=== PATIENT | female | born 1945 | race Caucasian/White ===

== ENCOUNTER 2018-10-30 22:03 | Inpatient (IN) ==
[2018-10-31] MEDS ORDERED: TYLENOL PO ONE (02:58)
[2018-10-31 03:02] LABS: BASO# 0.03 X1000 (0.0-0.2); BASO% 0.2 % (0.0-0.8); EOS# 0.05 X1000 (0.0-0.7); EOS% 0.4 % (0.0-10.0); HEMATOCRIT 15.1 % (37.0-47.0); HEMOGLOBIN 4.8 g/dL (12.0-16.0); LYMPH# 1.13 X1000 (1.2-3.4); LYMPH% 7.9 % (20.5-51.1); MCH 31.2 PG (27-31); MCHC 31.8 g/dL (33-37); MCV 98.1 FL (81-99); MONO% 4.9 % (1.7-9.3); MPV 9.3 FL (7.4-10.4); NEUT# 12.37 X1000 (1.4-6.5); NEUT% 86.6 % (42.2-75.2); PLT 280 X1000 (130-400); RBC 1.54 XMIL (4.2-5.4); RDW 17.6 % (11.5-14.5); WBC 14.28 X1000 (4.8-10.8)
[2018-10-31 03:10] LABS: ALB/GLOB RATIO 1.6; ALBUMIN 2.9 g/dL (3.5-5.0); CALCIUM 8.5 mg/dL (8.8-10.2); CREATININE 2.6 mg/dL (0.5-0.9); POTASSIUM 4.8 mmol/L (3.5-5.1); TOTAL BILIRUBIN 0.18 mg/dL (0.20-1.00); TOTAL PROTEIN 4.7 g/dL (6.3-8.3)
--- NOTE | 2018-10-31 03:51 | PROVIDER DOCUMENTATION ---
This chart was entered by Kira Buckner Scribe, acting as scribe for Allen Ray MD. HPI-General Adult - General Stated Complaint: ams, weakness Time Seen by Provider: 10/31/18 00:38 Source: patient Allergies/Adverse Reactions: Patient Allergies Allergy/AdvReac Type Severity Reaction Status Date / Time codeine Allergy ITCHING Verified 10/31/18 03:29 Sulfa (Sulfonamide Allergy Unknown Verified 10/31/18 03:29 Antibiotics) - History of Present Illness -Gen Adult Nature of Presenting Problems: 73 yof presents w/family w/cc blood in stools, afib, weak, locx2, low bp, lethargic and confused. pt was seen in [facility] , was given 2 units of blood. pt was d/c and told to follow up with [facility] internal medicine. pt family helped her to bathroom earlier and passed out 2 times b/c blood pressure bottoms out when standing. pt family states pt has colonoscopy scheduled for tomorrow but can't b/c rectal bleeding. pt has hx of anemia, st 4 renal failure, and cancerx2. Review of Systems - Adult - REVIEW OF SYSTEMS - ADULT Constitutional: reports: no symptoms reported, other (weak, lethargic, confused.) Eyes: reports: no symptoms reported Ears, Nose, Mouth & Throat: reports: no symptoms reported Cardiovascular: reports: no symptoms reported Respiratory: reports: no symptoms reported Gastrointestinal: reports: see HPI, rectal bleeding. denies: abdominal pain, hematemesis, constipation Genitourinary: reports: no symptoms reported Musculoskeletal: reports: no symptoms reported Integumentary: reports: no symptoms reported Neurological: reports: see HPI, syncope. denies: dizziness/vertigo, headache/migraines, seizure, slurred speech Psychiatric: reports: no symptoms reported Endocrine: reports: no symptoms reported Hematologic/Lymphatic: reports: no symptoms reported Allergic/Immunologic: reports: no symptoms reported All Other Systems: Reviewed and Negative Past History - Adult - PAST MEDICAL HISTORY-ADULT Review of Records: reports: Old Records Reviewed, Nursing Assessment Review, Medications Reviewed, Social history reviewed & non-contributory. Major Childhood Illnesses: reports: denies history Cardiovascular: reports: denies history Respiratory: reports: denies history Gastrointestinal: reports: denies history Obstetrical/Gynecological: reports: denies history Genitourinary: reports: denies history Musculoskeletal: reports: denies history Neurological: reports: denies history Endocrine/Immune: reports: denies history Other Conditions: reports: denies history - IMMUNIZATION STATUS Childhood Immunizations: See Nurse Assessment Flu Vaccine: See Nurse Assessment - FAMILY HISTORY Family History: reviewed, not pertinent Physical Exam-General - PHYSICAL EXAM-ADULT Initial Vital Signs Reviewed: Yes - CONSTITUTIONAL General Appearance: alert, mild distress, slow to respond. negative: anxious, obtunded, combative - EYES Eyes: PERRL/EOMI - HEAD, EARS, NOSE, MOUTH & THROAT HENMT: normocephalic/atraumatic, moist mucous membranes, normal ENT inspection - NECK Neck: non-tender, full range of motion, supple, normal inspection - RESPIRATORY Respiratory: chest non-tender, lungs clear, normal breath sounds - CARDIOVASCULAR Cardiovascular: normal peripheral pulses, regular rate, rhythm - GASTROINTESTINAL (ABDOMEN) Abdominal Exam: normal bowel sounds, non tender, soft - LYMPHATIC Lymphatic: no adenopathy - MUSCULOSKELETAL Back Exam: normal inspection, no CVA tenderness, no vertebral tenderness Extremity: normal range of motion, non-tender, normal inspection Peripheral Pulses: radial (R): 2+, radial (L): 2+ - SKIN Integumentary: normal color, normal turgor, warm/dry - NEUROLOGIC Neurologic: grossly normal, no motor/sensory deficits. negative: aphasia, EOM palsy, facial droop, focal weakness - PSYCHIATRIC Psych/Mental Status: normal mood/affect, normal thought content, normal thought process, oriented x 3. negative: anxious, disheveled, depressed affect Progress - PLAN OF CARE/RESULTS Progress/Plan/Lab Results: Vital Signs - 8 hr 10/30/18 22:41 Temperature 98.4 F Pulse Rate 71 Respiratory Rate 16 Blood Pressure 100/43 O2 Sat by Pulse Oximetry 100 Orders Category Date Time Status Nursing- Obtain EKG ONCE Care 10/31/18 00:53 Active cxr [CHEST-1 VIEW] [RAD] Stat Exams 10/31/18 00:53 Ordered CBC WITH ELECTRONIC DIFF [HEME] Stat Lab 10/31/18 00:53 Uncollected COMPREHENSIVE METABOLIC PANEL [CHEM] Stat Lab 10/31/18 00:53 Uncollected PRO B-NATRIURETIC PEPTIDE Stat Lab 10/31/18 00:53 Uncollected TROPONIN T Stat Lab 10/31/18 00:53 Uncollected TYPE & SCREEN [BBK] Stat Lab 10/31/18 00:53 Uncollected EKG [EKG] Stat Ther 10/31/18 00:53 Ordered Result Diagrams: 10/31/18 01:00 10/31/18 01:00 - EKG 1 Time of EKG reading by physician:: 01:08 EKG Read and Signed by:: Allen Ray EKG Interpretation (*Must complete 3 of following elements*): Abnormal Rate: 79 Rhythm: Undetermined rhythm QRS: LBB (incomplete), other (prolonged qt) ST Wave: non-specific ST changes (ST & T wave abnormality, consider inferior ischemia, ST & T wave abnormality, consider anterolateral ischemia) Departure - Departure Date of Disposition Decision: 10/31/18 Time of Disposition Decision: 03:50 DIAGNOSIS: GI bleed Qualifiers: GI bleed type/associated pathology: unspecified gastrointestinal hemorrhage type Qualified Code(s): K92.2 - Gastrointestinal hemorrhage, unspecified Disposition: ADMITTED INPATIENT 09 Certified Medical Emergency: Emergent Condition: Fair - Critical Care Note This patient required my direct & personal management of CC.: No Attestation - Physician/ DEVONTE Attestation Patient care was provided by Advanced Practice Provider:: No The physician spent face to face time with patient:: Yes Advanced Practice Provider documentation review:: Supervising physician onsite and consulted in the evaluation and care of this patient. The physician did have a face to face encounter with the patient. This chart was documented by the indicated scribe, (Kira Buckner Scribe) and accurately reflects the services I performed and decisions made by me, Allen Ray MD, as attested by the provider's signature.
[2018-10-31] MEDS ORDERED: TYLENOL PO PRN (05:05)
[2018-10-31] MEDS ORDERED: VITAMIN D PO SCH (05:15)
[2018-10-31] MEDS: HUMALOG SUBQ SCH ×5 (05:15→21:15)
[2018-10-31 05:55] LABS: IRON SATURATION 24 %; TIBC 208 ug/dL; TOTAL IRON 49 ug/dL (49-151); UNBOUND IRON 159 ug/dL (112-346)
[2018-10-31] MEDS ORDERED: NS 500 ML ONE ×2 (05:57→23:43)
[2018-10-31 06:36] LABS: RETIC% 4.24 % (0.8-2.1); RETIC-HE 37.9 PG (28.2-36.6)
[2018-10-31] MEDS ORDERED: PRILOSEC PO SCH (07:00)
--- NOTE | 2018-10-31 07:14 | Diag Imaging Result Doc PS360 ---
EXAM: CHEST-1 VIEW 10/31/2018 HISTORY: syncope TECHNIQUE: AP portable at 0124 COMMENT: There is obscuration of the left heart border. There is a Port-A-Cath on the left. There are sternotomy wires and anterior mediastinal surgical clips. There are no previous studies available for comparison. IMPRESSION: Atelectasis versus pneumonia in the lingula. Electronically signed by Ede Medina 10/31/2018 7:12 AM
--- NOTE | 2018-10-31 07:40 | EKG Report ---
Test Performed on : 10/31/2018 01:08:13 AM Test Reason : syncope Blood Pressure : / mmHG Vent. Rate : 079 BPM Atrial Rate : 083 BPM P-R Int : 000 ms QRS Dur : 114 ms QT Int : 436 ms P-R-T Axes : 000 003 179 degrees QTc Int : 499 ms Undetermined rhythm Incomplete left bundle branch block ST & T wave abnormality, consider inferior ischemia ST & T wave abnormality, consider anterolateral ischemia Prolonged QT Abnormal ECG No previous ECGs available Unconfirmed Result
[2018-10-31] MEDS ORDERED: ASPIRIN EC PO SCH (09:00)
--- NOTE | 2018-10-31 09:09 | HISTORY AND PHYSICAL ---
CHIEF COMPLAINT: Weakness. HISTORY OF PRESENT ILLNESS: Ms. Godfrey is a 73-year-old female who presented to the emergency room with weakness. She had a spell yesterday where she felt very dizzy and fell. She did not state that she had loss of consciousness. She fell on her backside and was sore. She was lethargic but was alert and oriented x3. The patient was seen in [facility] on this previous and was given 2 units of blood. She was going to follow up for an endoscopy but had this spell so came to the emergency room. The patient has a past medical history of coronary artery disease with myocardial infarction, chronic lymphedema, endometrial cancer status post radiation and chemotherapy, chronic anemia, stage 4 chronic kidney disease, diabetes mellitus type 2 that is now insulin dependent. On arrival to the emergency room laboratory data was checked which showed that she had a hemoglobin of 4.8 and hematocrit of 15.1. The patient will be admitted and transfused with further evaluation and treatment. PAST MEDICAL HISTORY: See history of present illness. Hypothyroidism. PREVIOUS SURGICAL HISTORY: CABG and hysterectomy. SOCIAL HISTORY: She lives with her son and . She started smoking when she was 19 years old and has been a pva-vrfy-dbv-day smoker since that time. She continues to smoke to this day. Smoking cessation was gone over with the patient. She denies wanting to quit. She denies alcohol or illicit drugs. FAMILY HISTORY: Mother still living at 92, recently diagnosed with congestive heart failure. Father started having CVAs in his 60s and at roughly 70 years old. ALLERGIES: Codeine, sulfa. HOME MEDICATIONS: Aspirin 81 mg p.o. daily, Lipitor 40 mg p.o. b.i.d., carvedilol 25 mg p.o. b.i.d., vitamin D3 5000 units p.o. as directed, furosemide 40 mg p.o. daily, hydralazine 50 mg p.o. t.i.d., isosorbide 60 mg p.o. daily, levothyroxine 200 mcg p.o. daily, losartan 100 mg p.o. daily, niacin 500 mg p.o. daily, Lantus insulin 35 units subcutaneously daily. Protonix 40 mg p.o. daily. REVIEW OF SYSTEMS: A 14-point review of systems was conducted with the patient. Pertinent positives listed above in the HPI. She denies melena, hematochezia, hematemesis, hematuria. All other systems reviewed and were also found to be negative. PHYSICAL EXAMINATION: VITAL SIGNS: Temperature 97.9, pulse 74, respirations 15, blood pressure 138/48, and oxygen saturation 100% on room air. GENERAL: A pleasant 73-year-old female lying in the ER stretcher. Answers all questions appropriately. She is alert and oriented x3. HEENT: The head is atraumatic an normocephalic. The pupils are equal, round, and reactive to light. Extraocular eye movements are intact. The sclerae are nonicteric. The conjunctivae are pale. The oral mucosa is dry. NECK: Supple. No JVD but mild hepatojugular reflux. Trachea is midline. No cervical lymphadenopathy. CARDIAC: S1, S2 appreciated. No murmurs, gallops, rubs. LUNGS: Clear to auscultation bilaterally. No rhonchi, wheezes, or rales. Symmetric rise and fall with respirations. ABDOMEN: Soft, nondistended, nontender. Bowel sounds present in all four quadrants. Normoactive. No pulsatile masses. No organomegaly. EXTREMITIES: 1 to 2+ pitting edema bilateral lower extremities related to chronic lymphedema. 1+ pedal pulses bilaterally. GENITOURINARY: No bladder distention, patient voids, otherwise deferred. NEUROLOGICAL: Alert and oriented x3. Cranial nerves II through XII grossly intact. DIAGNOSTIC DATA: Chest x-ray shows chronic COPD changes. LABORATORY DATA: WBC 14.28. Hemoglobin 4.8. Hematocrit 15.1. Platelet count 280,000. Sodium is 142. Potassium is 4.8. Chloride 110. BUN 101. Creatinine 2.6. Glucose 191. ASSESSMENT AND PLAN: 1. Symptomatic anemia of chronic disease. We will transfuse 2 units of packed red blood cells at this time. Consult Dr. Yee George. Likely the patient will need two more units of packed red blood cells. Check iron indices. We will also check intact parathyroid hormone. It is possible also that the patient may need a bone marrow biopsy. 2. Chronic kidney disease stage 4. This also contributes to the patient's anemia. She is at her baseline. From what I understand we do not have previous labs on her. We will consult Dr. Colby for further assistance in this area. 3. Hypertension. Continue home medications at this time. The patient has been taking her medications and has been maintaining normal blood pressures, even with her low blood counts. It is probable that she is orthostatic but will need the medications once blood transfusions are complete. 4. Coronary artery disease. Aware. 5. Hyperlipidemia. Continue statin. 6. Diabetes mellitus type 2, now insulin dependent. We will hold the patient's Lantus, q.4 h. fingersticks with sliding scale insulin, diabetic diet. 7. Further recommendations per the patient's clinical course. PRIMARY CARE PHYSICIAN: Dr. Cadena. ONCOLOGIST: Dr. Yee George. Dictated by TRINY Boyce for Prashant Wolfe MD cc: MD Yee Langley MD Harley C. Bailey, CRNP [place]le P. Akinsoto, MD
[2018-10-31] MEDS: NIACIN PO SCH (10:02)
[2018-10-31] MEDS: COZAAR PO SCH (10:02)
[2018-10-31] MEDS: IMDUR PO SCH (10:02)
[2018-10-31] MEDS: LASIX PO SCH (10:02)
[2018-10-31] MEDS: LIPITOR PO SCH ×2 (10:02→21:49)
[2018-10-31] MEDS: SYNTHROID PO SCH (10:03)
[2018-10-31] MEDS: COREG PO SCH ×2 (10:03→21:32)
[2018-10-31] MEDS: APRESOLINE PO SCH ×3 (10:05→17:00)
[2018-10-31 10:15] LABS: HEMOGLOBIN 8.3 g/dL (12.0-16.0)
--- NOTE | 2018-10-31 11:10 | PROGRESS NOTE ---
DATE: 10/31/2018 SUBJECTIVE: This morning, Ms. Godfrey refers to be doing a lot better. She does not feel dizzy anymore . She had 2 units of PRBC transfused. Hemoglobin and hematocrit is up to 8.3. Briefly, Ms. Godfrey got admitted yesterday. She had gone to [facility] about a week ago because her primary care doctor, Dr. Cadena found out that her hemoglobin was low. Over there, they gave her 2 units and she went home. She said even at home, she continues to have some dark maroon-colored GI bleed, but yesterday she became more dizzy, having more tiredness, so he came to the emergency department where she was found to have a hemoglobin level of 4.8. She was admitted and has been transfused 2 PRBCs. OBJECTIVE: Vitals: This morning, her blood pressure is 163/53, pulse 77, respirations 16, temperature 98 degrees. General: Ms. Godfrey is a 73-year-old female. She is in bed. No distress. HEENT: Mucosa is slightly pale, moist, anicteric, acyanotic. Neck: Neck is supple. Chest: Good air entry bilaterally. There are no crepitations, no rhonchi. Patient has an old sternotomy scar on the anterior chest wall. Cardiovascular: Regular rate and rhythm. No murmurs, no rubs, no gallops. GI: Abdomen is soft, minimally tender in the epigastrium. Bowel sounds are present. No hepatosplenomegaly. Extremities: The left side is normal. The right side has a chronic lymphedema which is noted. 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 No focal neurological deficit. LABORATORY DATA: WBC is 14.28, hemoglobin is now 8.3, platelet count of 280,000. Chemistry is also reviewed. BUN is 101 with creatinine of 2.6. The patient refers to be making urine. IMAGING: A chest x-ray did show atelectasis versus pneumonia in the lingula. CURRENT MEDICATIONS: Have all been reviewed. ASSESSMENT: 1. Symptomatic anemia. Presenting hemoglobin is 4.8. Patient is status post 2 PRBC transfusion. Hemoglobin and hematocrit is up. 2. Anemia secondary to gastrointestinal bleed. Gastroenterology has been consulted to evaluate for the source of the bleed. Patient on PPI 3. Renal failure. Etiology and chronicity is unknown. We do not have any baseline studies in our system. We will request his medical chart from his PCP as well as his oncologist. 4. History of endometrial cancer status post treatment. The patient is said to have been cancer- free for the past 6 years. 5. Chronic right lymphedema noted. 6. Mild gap metabolic acidosis likely due to the degree of the renal failure. 7. History of coronary artery disease status post coronary artery bypass graft. PLAN: So in general, I think Ms. Godfrey is fairly stable. She now feels a lot better. Hemoglobin and hematocrit is up to 8.3. We are going to repeat this later on today as well. She does not seem to have ongoing active gastrointestinal bleed. However, we will consult Gastroenterology to evaluate her for the source of the bleed. cc: Dg Deshpande MD MTDD
[2018-10-31] MEDS ORDERED: PROTONIX 80 MG in NS 80 ML IV ONE (12:10)
--- NOTE | 2018-10-31 13:35 | Diag Imaging Result Doc PS360 ---
CT ABDOMEN/PELVIS W/O CONTRAST - 10/31/2018 INDICATION: Severe Anemia; H/o endometrial cancer in the past COMPARISON: None FINDINGS: There is some platelike atelectasis or scarring in the lung bases. No definite infiltrates. Heart size is grossly normal. There are numerous calcified granulomas throughout the spleen. There is severe calcified vascular disease throughout the aorta and all of its branches. The superior mesenteric artery and renal arteries are heavily affected. Otherwise abdominal organs appear normal. No bowel obstruction or inflammation. No mass or adenopathy. The uterus is absent. Urinary bladder and rectum are normal. There is significant body wall edema, worst at the right hip and thigh. There are moderate degenerative changes of the spine. No acute or suspicious bony lesion. IMPRESSION: 1. Significant body wall edema worst at the right hip and thigh. The reason is unclear. The appearance is nonspecific. 2. No suspicious findings or evidence of recurrence. 3. Severe vascular disease. This exam was performed using automated exposure control, adjustment of mA or kV according to patient size, and/or use of iterative reconstruction technique Electronically signed by Hosea Garcia 10/31/2018 1:33 PM
[2018-10-31] MEDS: PROTONIX 80 MG in NS 80 ML IV SCH (13:40)
--- NOTE | 2018-10-31 13:49 | GASTROENTEROLOGY CONSULTATION ---
DATE: 10/31/2018 REFERRING PHYSICIAN: Dr. Deshpande. PRIMARY CARE DOCTOR: Dr. Ashley Quiroz. REASON FOR CONSULTATION: Severe anemia and maroon stools. HISTORY OF PRESENT ILLNESS: Ms. Godfrey is a 73-year-old female who was admitted on 10/31/2018 with severe weakness. On admission, her hemoglobin was noted to be 4.8 g. She was given 2 units of blood transfusion in the ER. The patient was recently seen, on last Sunday, at [facility] for similar symptoms. She was found to be anemic and she was given 2 units of blood transfusion. She was discharged home to follow up as an outpatient with her primary care doctor. She has a history of coronary artery disease, status post coronary artery bypass graft, and a history of endometrial cancer, status post radiation and chemotherapy. The last treatment was more than 6 or 7 years ago. The patient has been noticing some maroon stools since Sunday, off and on. She denies any nausea, vomiting, or vomiting blood. She had her last colonoscopy done in [place] 7 years ago where she was told she had polyps. She has a history of chronic kidney disease stage 4 but she has not been on dialysis yet. She denies any history of use of NSAIDs or any other blood thinners. Gastroenterology was consulted for further management. PAST MEDICAL HISTORY: Chronic lymphedema, coronary artery disease, status post CABG, endometrial cancer, status post chemotherapy and radiation with last dose 7 years ago, chronic anemia, stage 4 chronic kidney disease, type 2 diabetes which is now insulin-dependent, chronic anemia which has worsened now. PAST SURGICAL HISTORY: CABG, hysterectomy, colonoscopy 7 years ago. SOCIAL HISTORY: Lives with her son and her . She started smoking when she was 19 years old. She has been a one pack per day smoker since that time. She continues to smoke to this day. She denies any history of alcohol or illicit drug abuse. FAMILY HISTORY: Mother still living at 92, recently diagnosed with congestive heart failure. Father started having CVAs in his 60s and at age 7070 years old. ALLERGIES: Codeine and sulfa. MEDICATIONS: Medications in the hospital include Tylenol, Lipitor, Coreg, Lasix, hydralazine, Humalog, isosorbide mononitrate, levothyroxine, losartan, niacin, Zofran, Protonix. I just started the patient on Protonix. We discontinued oral Prilosec. DIET: I switched her from a diabetic diet to a clear liquid diet. REVIEW OF SYSTEMS: Denies any fevers, rigors, chills, chest pain, shortness of breath, dyspnea at rest. Does complain of feeling weak and tired, improving since blood transfusion. Denies any nausea, vomiting, vomiting blood. She denies any major abdominal pain. Does complain of maroon stools. She does have a history of arthritis. Denies any history of NSAIDs. She does take aspirin for coronary artery disease. She denies any neurologic complaints. PHYSICAL EXAMINATION: Vital Signs: Temperature of 98.1 degrees, pulse rate of 67, respiratory rate of 17, blood pressure 124/41, saturating 100% on room air. Body weight of 160 pounds,. BMI 27.5 kg/m2. General Appearance: Moderately built, moderately nourished, lying in bed, in no acute distress. HEENT: Pallor. There is no icterus. Pupils equal, reactive to light. Neck: Supple. Abdomen: Soft, nontender, nondistended. No rebound or guarding. Extremities: No cyanosis, clubbing. She has swelling in the right leg with erythema, suggesting cellulitis. Neurologic: She is alert, awake, and oriented x3. LABS: Hemoglobin and hematocrit are 8.3 and 26, white count of 14.28, platelet count of 280,000, MCV of 98.1. Admission hemoglobin and hematocrit were 4.8 and 15.1. Sodium of 142, potassium of 4.2, chloride of 110, bicarb of 79, BUN of 101, creatinine of 2.2, glucose of 191, calcium is 8.5. Iron level percent saturation of 24, ferritin of 876. Total bilirubin is 0.18, AST 12, ALT 17, alkaline phosphatase 74, total protein is 4.7, albumin of 2.9, folate of 4.9, PTH of 111, and ferritin level 876, percent saturation of iron is 24%. Chest x- ray, atelectasis and pneumonia in the lingula. IMPRESSION AND PLAN: 1. Severe symptomatic anemia. 2. Maroon stools. 3. History of use of aspirin every day for coronary artery disease. 4. Chronic smoker since age 19. 5. History of Endometrial cancer treated 7 years ago with Radiation and chemotherapy. RECOMMENDATIONS: 1. We will check serial hematocrits and transfuse as needed to keep hematocrit more than 27%. 2. We will switch her to a Protonix drip. 3. We will hold her aspirin for now. 4. We will schedule her for EGD and colonoscopy tomorrow with Dr. Ramirez. The risks, benefits, indications, and alternatives to the procedure were discussed with the patient. All questions were answered. 5. The patient was also counseled to quit smoking. In the interim, the patient will need to be watched closely. She will be switched to a clear liquid diet. 6. We will order a CT scan of the abdomen and pelvis without contrast to evaluate for any major sources of gastrointestinal bleeding as she has prior h/o endometrial malignancy. 7. The above plan was discussed with the patient and nursing staff, and all questions were answered. Please call with any further questions. cc: MD Ashley Kruse Read [facility]
[2018-10-31] MEDS ORDERED: GOLYTELY PO ONE (14:00)
[2018-10-31] MEDS: ZOFRAN IV PRN (14:22)
--- NOTE | 2018-10-31 15:17 | NEPHROLOGY CONSULTATION ---
DATE: 10/31/2018 REASON FOR ADMISSION: Weakness with recent fall. REASON FOR CONSULTATION: Chronic kidney disease stage IV and assistance with medical management. HISTORY OF PRESENT ILLNESS: Ms. Godfrey is a 73-year-old white female, who presented to [facility] Emergency Department with severe weakness. She had been seen in our office for the first time by Dr. Hamilton on 10/30/2018 with orders for ultrasound, 24-hour urine and repeat labs to be followed up within 2 to 3 months. She states that she has known chronic kidney disease and was told about this last week during her hospitalization at [facility]. The patient states that she became weak yesterday afternoon. She had fallen. She did not indicate that she had lost consciousness, though she states that she is sore all over at this time. No evidence of bruising present anteriorly. On admission to the ER, it was found that her hemoglobin was down to 4.8. She admits that she was given 2 units of packed red blood cells last at [facility] and released on Sunday. The patient admits that she has had a history of endometrial cancer. She has undergone treatments x2 with chemo and radiation therapy. She has recently moved to [place] from [place] with her son. She has just recently been set up with Dr. Ashley Cadena in [place]. She has an appointment for follow-up set up by [facility] with Dr. Munoz on the of this month. She states that she has a history of coronary artery disease with a history of an AZ, chronic lymphedema to her right side, endometrial cancer status post radiation and chemotherapy x2. She has chronic anemia and known stage IV kidney disease, so she is unable to tell you what her baseline creatinine is. She currently denies chest pain. She is sore all over. Denies increased work of breathing. She is weak. No fever or chills. No nausea, vomiting. No recent diarrhea, though she states she has had a poor appetite for several days. The patient has received 2 units of packed red blood cells upon our evaluation this a.m. in the emergency room. She will be admitted to the floor for further monitoring and evaluation. PREVIOUS SURGICAL HISTORY: She has had a CABG and a hysterectomy. PAST MEDICAL HISTORY: Chronic kidney disease stage IV, endometrial cancer, chronic lymph edema right greater than left, previous AZ, coronary artery disease, chronic anemia, diabetes mellitus type 2 insulin dependent. SOCIAL HISTORY: She is . She has currently moved up here to live with her son from the [facility]. She has started smoking when she was 19. Smokes approximately a pack a day. She continues to smoke daily. Denies any alcohol or illicit drug use. FAMILY HISTORY: Mother is living at with them. Recently diagnosed with congestive heart failure. Father started having CVAs in his 60s, roughly 70 years ago. CURRENT ALLERGIES: Listed as codeine and sulfa. HOME MEDICATIONS: Aspirin, Lipitor, carvedilol, vitamin D 3, furosemide, hydralazine, isosorbide, levothyroxine, losartan, niacin, Lantus insulin, Protonix. REVIEW OF SYSTEMS: Review of systems x10 with pertinent positives listed above in the HPI. PHYSICAL EXAMINATION: Her most recent vital signs: Temperature is 98.2, blood pressure 119/46, heart rate 79 and respirations 16. General: On physical examination, this is a 73-year-old white female resting quietly on a stretcher. She appears chronically ill, no acute distress. Skin: Warm and dry. HEENT: Normocephalic, atraumatic. Conjunctiva is pale. She has MEENU. Mucous membranes are dry. Neck: Supple. Trachea midline. No evidence of JVD. Cardiovascular: She is regular rate and rhythm. She has an S4 present. She is having frequent PVCs on the monitor. Lungs: Clear to auscultation anterior; equal excursion on O2. Abdomen: Soft, round, large, nontender. Positive bowel sounds. Genitourinary: Not inspected. Extremities: She has edema to the right greater than left. No clubbing or cyanosis. Neurological: She is alert and oriented x3. She is a good historian. LABS: This a.m. sodium 142, potassium 4.8, chloride 110, CO2 17. BUN 101, creatinine 2.6, glucose 191. Anion gap of 15, calcium 8.5, albumin 2.9. She has a PTH of 111. She has had 350 in; she has had 0 recorded out. Her white count 14.28, hemoglobin 4.8, hematocrit 15.1 with a platelet count of 280. ASSESSMENT AND PLAN: 1. Chronic kidney disease stage IV. The patient is known to have a creatinine in the mid 2s. Recently seen by Dr. Hamilton yesterday. She is to have a workup with a renal ultrasound. It appears she has a CT of the abdomen scheduled secondary to a history of endometrial cancer. We will monitor and evaluate this to see if we need to order a renal ultrasound during her hospitalization. 2. Electrolytes and acid-base balance; these are acceptable. 3. Anemia. Patient has already been transfused 2 units of packed red blood cells. They will consult Dr. Yee George. She is actually scheduled to see Dr. Munoz. We will defer to the primary care team for further referrals. 4. Hypotension. The patient's blood pressure is actually low right now, more than likely secondary to volume depletion. I would like to thank you for allowing us to follow with this patient. Dictated by TRINY Goddard for Daniel Colby MD Face to face encounter, data reviewed, discussed with Damion Browne on 11/01/18. I agree with the above assessment and plan of care. cc: TRINY Goddard MD [facility]
[2018-10-31] MEDS: NS 1,000 ML IV SCH (18:00)
[2018-10-31 20:22] LABS: BASO# 0.04 X1000 (0.0-0.2); BASO% 0.3 % (0.0-0.8); EOS# 0.16 X1000 (0.0-0.7); EOS% 1.4 % (0.0-10.0); HEMATOCRIT 23.2 % (37.0-47.0); HEMOGLOBIN 7.7 g/dL (12.0-16.0); IMM GRAN# 0.09 X1000 (0.0-0.04); IMM GRAN% 0.8 % (0.0-0.5); LYMPH# 1.78 X1000 (1.2-3.4); LYMPH% 15.5 % (20.5-51.1); MCH 30.3 PG (27-31); MCHC 33.2 g/dL (33-37); MCV 91.3 FL (81-99); MONO# 1.06 X1000 (0.11-0.59); MONO% 9.2 % (1.7-9.3); MPV 8.7 FL (7.4-10.4); NEUT# 8.35 X1000 (1.4-6.5); NEUT% 72.8 % (42.2-75.2); PLT 273 X1000 (130-400); RBC 2.54 XMIL (4.2-5.4); WBC 11.48 X1000 (4.8-10.8)
[2018-11-01] MEDS: HUMALOG SUBQ SCH ×4 (01:15→21:27)
[2018-11-01] MEDS: PROTONIX 80 MG in NS 80 ML IV SCH ×2 (02:00→08:22)
[2018-11-01 07:06] LABS: BASO# 0.04 X1000 (0.0-0.2); BASO% 0.4 % (0.0-0.8); EOS# 0.28 X1000 (0.0-0.7); EOS% 2.8 % (0.0-10.0); HEMATOCRIT 28.9 % (37.0-47.0); HEMOGLOBIN 9.9 g/dL (12.0-16.0); IMM GRAN# 0.07 X1000 (0.0-0.04); IMM GRAN% 0.7 % (0.0-0.5); LYMPH# 1.36 X1000 (1.2-3.4); LYMPH% 13.5 % (20.5-51.1); MCH 30.4 PG (27-31); MCHC 34.3 g/dL (33-37); MCV 88.7 FL (81-99); MONO# 0.97 X1000 (0.11-0.59); MONO% 9.6 % (1.7-9.3); NEUT# 7.34 X1000 (1.4-6.5); PLT 220 X1000 (130-400); RBC 3.26 XMIL (4.2-5.4); RDW 15.6 % (11.5-14.5); WBC 10.06 X1000 (4.8-10.8)
[2018-11-01 07:38] LABS: CALCIUM 8.7 mg/dL (8.8-10.2); CREATININE 2.5 mg/dL (0.5-0.9); POTASSIUM 4.1 mmol/L (3.5-5.1)
[2018-11-01] MEDS: SYNTHROID PO SCH (08:12)
[2018-11-01] MEDS: LIPITOR PO SCH ×2 (08:13→21:26)
[2018-11-01] MEDS: IMDUR PO SCH ×2 (08:13→11:37)
[2018-11-01] MEDS: COZAAR PO SCH ×2 (08:13→11:36)
[2018-11-01] MEDS: LASIX PO SCH (08:13)
[2018-11-01] MEDS: NIACIN PO SCH ×2 (08:13→11:36)
[2018-11-01] MEDS: APRESOLINE PO SCH ×4 (08:14→21:34)
[2018-11-01] MEDS: COREG PO SCH ×2 (08:18→21:26)
[2018-11-01] MEDS: NS 1,000 ML IV SCH ×4 (08:21→21:21)
[2018-11-01] MEDS ORDERED: NS 1,000 ML IV SCH (08:34)
[2018-11-01] MEDS ORDERED: DIPRIVAN 1% ONE ×2 (09:04→09:51)
[2018-11-01] MEDS ORDERED: EPINEPHRINE SYRINGE ONE (09:55)
[2018-11-01] MEDS ORDERED: SODIUM CHLORIDE 0.9% 10 ML ONE (10:53)
[2018-11-01] MEDS: PROTONIX IV SCH ×2 (10:56→21:48)
[2018-11-01] MEDS: ZOFRAN IV PRN (11:00)
[2018-11-01 11:25] LABS: BASO# 0.02 X1000 (0.0-0.2); BASO% 0.2 % (0.0-0.8); EOS# 0.22 X1000 (0.0-0.7); EOS% 1.8 % (0.0-10.0); HEMATOCRIT 29.5 % (37.0-47.0); IMM GRAN# 0.07 X1000 (0.0-0.04); IMM GRAN% 0.6 % (0.0-0.5); LYMPH# 0.96 X1000 (1.2-3.4); LYMPH% 7.8 % (20.5-51.1); MCH 30.2 PG (27-31); MCHC 33.9 g/dL (33-37); MCV 89.1 FL (81-99); MONO# 1.04 X1000 (0.11-0.59); MONO% 8.4 % (1.7-9.3); MPV 8.5 FL (7.4-10.4); NEUT% 81.2 % (42.2-75.2); PLT 210 X1000 (130-400); RBC 3.31 XMIL (4.2-5.4); RDW 15.8 % (11.5-14.5); WBC 12.31 X1000 (4.8-10.8)
[2018-11-01 12:57] LABS: URINE SOURCE VOIDED
[2018-11-01 13:05] LABS: BILIRUBIN URINE NEGATIVE (NEGATIVE); BLOOD URINE SMALL (NEGATIVE); COLOR YELLOW; GLUCOSE URINE 200 mg/dL (NEGATIVE); KETONE URINE TRACE mg/dL (NEGATIVE); LEUKOCYTES URINE TRACE (NEGATIVE); NITRITE URINE NEGATIVE (NEGATIVE); PROTEIN URINE 300 mg/dL (NEGATIVE); SP GRAVITY URINE 1.011; TURBIDITY URINE CLEAR (CLEAR); UROBILINOGEN URINE NORMAL (NORMAL)
[2018-11-01 13:07] LABS: UR EPITHELIAL CELLS <10 /HPF (<10); URINE BACTERIA 3+ /HPF; URINE RBC <10 /HPF (<10)
[2018-11-01 13:40] LABS: UR CREAT RANDOM 60.9 mg/dL (11-20); UR PROT RANDOM 261.3 mg/dL
--- NOTE | 2018-11-01 15:47 | OPERATIVE NOTE ---
PROCEDURE DATE: 11/01/2018 PROCEDURE: 1. Upper GI endoscopy. 2. Incomplete colonoscopy SURGEON: Danny Ramirez MD. INDICATIONS: Melena, acute blood-loss anemia. ANESTHESIA: Monitored anesthesia care. DESCRIPTION OF PROCEDURE: Prior to the procedure, a history and physical was performed. The patient's medications and allergies were reviewed. The patient's tolerance of previous anesthesia was also reviewed. The risks and benefits of the procedure and sedation options and risks were discussed with the patient. All questions were answered. Informed consent was obtained. After reviewing the risks and benefits, the patient was deemed in satisfactory condition to undergo the procedure. The endoscope was passed under direct visualization. Throughout the procedure, the patient's blood pressure, pulse and oxygen saturation were monitored continuously. The endoscope was introduced in the mouth and advanced to the second portion of the duodenum where a area of active oozing blood was seen that was beyond the reach of the endoscope. The endoscope was switched to a pediatric colonoscope, which enabled us to access the area of bleeding. The upper GI endoscopy was accomplished without difficulty. The patient tolerated the procedure well. The colonoscope was passed through the anus to the sigmoid colon where we encountered copious amounts of melenic stool. At that point, the colonoscopy was aborted giving upper GI endoscopy findings. COMPLICATIONS: No immediate complications. ESTIMATED BLOOD LOSS: Minimal. FINDINGS: The esophagus was normal. The Z-line was regular at 40 cm from the incisors. Stomach was normal. Within the duodenum, there was a small clot seen about 5 cm beyond the ampulla, which was unroofed and revealed active oozing blood from a submucosal lesion consistent with Dieulafoy's lesion. This area was injected with 3 mL of epinephrine with good blanching. Monopolar probe was used to cauterize that area. There was no bleeding at the end of the procedure. About 2 mL of spot was used to tattoo the area to relocate area in case the patient has recurrent bleeding. The colonoscope was passed and we found melenic stool in the colon. The colonoscopy was aborted. IMPRESSION: 1. Bleeding Dieulafoy's lesion in the second portion of the duodenum, status post epinephrine cautery and tattoo. 2. Melenic stool in the sigmoid colon. RECOMMENDATIONS: Start clear liquid diet. Continue PPI IV b.i.d. Continue to trend hemoglobin and hematocrit every 6 to 8 hours. Transfuse as needed to maintain hemoglobin of 7 to 8. We will follow with you. Please call with any questions or concerns.
--- NOTE | 2018-11-01 16:30 | PROGRESS NOTE ---
DATE: 11/01/2018 SUBJECTIVE: Today Ms Godfrey referred to be doing a lot better. She has not had any more dark stool. She also went for EGD, colonoscopy unfortunately was not able to be done because of poor preparation. OBJECTIVE: Vitals: Blood pressure is 135/67, pulse is 74, respiration is 18, temperature 98 degrees, patient is saturating 99% on room air. General: Ms. Godfrey is a 73-year-old female she was sitting up in the chair, no distress. Mucosa is pink and moist. Anicteric. Acyanotic. Neck: Supple. Chest: Good air entry bilateral. There was no crepitations, no rhonchi. Cardiovascular: Regular rate and rhythm, there is no murmurs, no rubs, no gallops. There is an old sternotomy scar on the anterior chest wall. Abdomen: Soft, nontender. Bowel sounds present. Extremities: There is no pedal edema on the left side. The right thigh has chronic lymphedema. WASHROOM CLEANER: Patient is awake, alert, oriented. LABORATORY DATA: WBC is 12.31, hemoglobin is 10.0, platelet count of 210,000. Chemistry is also reviewed. Creatinine is 2.5. Patient medications have all been reviewed. ASSESSMENT: 1. Symptomatic anemia. Patient is status post 4 packed red blood cells transfusion. Hemoglobin and hematocrit is up to 10.0. 2. Anemia secondary to gastrointestinal bleed. Patient is status post EGD, we still pending the official report, colonoscopy was postponed. 3. Chronic kidney disease stage 4. As per Nephrology report creatinine is fairly stable. Patient makes adequate urine. 4. History of endometrial cancer status post adjuvant therapy. 5. Chronic right lymphedema noted. 6. History of coronary artery disease status post coronary artery bypass graft. Patient is currently asymptomatic. Metabolic acidosis secondary to renal failure. We will start the patient on oral bicarb therapy. cc: Dg Deshpande MD
[2018-11-01 16:50] LABS: BASO# 0.02 X1000 (0.0-0.2); BASO% 0.2 % (0.0-0.8); EOS# 0.07 X1000 (0.0-0.7); EOS% 0.6 % (0.0-10.0); HEMATOCRIT 30.7 % (37.0-47.0); HEMOGLOBIN 10.5 g/dL (12.0-16.0); IMM GRAN# 0.06 X1000 (0.0-0.04); IMM GRAN% 0.5 % (0.0-0.5); LYMPH# 0.88 X1000 (1.2-3.4); LYMPH% 7.1 % (20.5-51.1); MCH 30.5 PG (27-31); MCHC 34.2 g/dL (33-37); MCV 89.2 FL (81-99); MONO# 0.84 X1000 (0.11-0.59); MONO% 6.8 % (1.7-9.3); MPV 8.7 FL (7.4-10.4); NEUT# 10.45 X1000 (1.4-6.5); NEUT% 84.8 % (42.2-75.2); PLT 245 X1000 (130-400); RBC 3.44 XMIL (4.2-5.4); RDW 16.1 % (11.5-14.5); WBC 12.32 X1000 (4.8-10.8)
--- NOTE | 2018-11-01 17:51 | HEMO/ONC CONSULTATION ---
DATE: 11/01/2018 CONSULTATION REQUESTED BY: The hospitalist service. REASON FOR CONSULTATION: Anemia. HISTORY OF PRESENT ILLNESS: Ms. Godfrey is a 73-year-old, female who is known to us as we follow her for anemia related to chronic disease. The patient apparently started to have symptoms of feeling dizzy and faint. She actually went to [facility] about a week ago and received 2 units of packed red blood cells. The plan was for her to have an endoscopy, but she had another episode of dizziness and feeling faint and instead came to the emergency department at [facility]. Upon admission, she had a hemoglobin of 4.8. She does have stage 4 chronic kidney disease. We do see her as an outpatient and give her Aranesp per protocol. She was recently seen September 2018 at which time her hemoglobin was 10.1. Her iron saturation percent at that time was 40.4 with a ferritin of 658 and a serum iron of 74. The patient did not qualify for Aranesp at that time, she did not receive it. PAST MEDICAL HISTORY: 1. Chronic kidney disease. 2. Diabetes. 3. Hypertension. 4. Coronary artery disease. 5. Hyperlipidemia. 6. Anemia of chronic disease. 7. Hypothyroidism. 8. History of endometrial cancer. PAST SURGICAL HISTORY: 1. Coronary artery bypass grafting back in 2014. 2. Cardiac stent placement 2017. 3. Hysterectomy 2007. SOCIAL HISTORY: The patient is . She is currently an every day smoker and has a 50 pack- year history. She denies any alcohol or illicit drug use. FAMILY HISTORY: Positive for congestive heart failure as well as TIAs and gastric cancer. Also positive for prostate cancer. Also has a positive history for endometrial cancer. REVIEW OF SYSTEMS: A 12-point review of systems has been completed and is negative except for expressed in HPI. PHYSICAL EXAMINATION: Vital Signs: Temperature 98.0 degrees, heart rate 69, respirations 17, blood pressure 128/39, O2 saturation 98% on room air. General: This is a female lying on the hospital bed in the emergency department. She is in no acute distress. HEENT: Head normocephalic, atraumatic. Eyes: Sclerae anicteric. Mouth: Oral mucosa is normal. Cardiovascular: S1-S2 heard. No murmurs, gallops, rubs appreciated. Respiratory: Chest is clear. No respiratory effort. Gastrointestinal: Soft. Positive bowel sounds. Musculoskeletal: No bony abnormalities. Extremities: Trace edema. Neurologic: The patient is alert and oriented. LABORATORIES AND STUDIES: Hemoglobin is now back up to 8.3 after 2 units of packed red blood cells. Platelet count 282,000. Sodium 142, potassium 4.8, chloride 110, BUN 101, creatinine 2.6, iron is 49, saturation percent 24, ferritin is 876. TIBC is 208, B12 461, folate 12.9. ASSESSMENT AND PLAN: 1. Anemia of chronic disease, now with acute blood loss anemia. I would recommend to continue to transfuse as needed. Agree with Gastroenterology evaluation to identify bleeding source. We will follow up with the patient as an outpatient when she is released. We will continue to provide growth factor per protocol. We will also continue above iron transfusions as needed. 2. Gastrointestinal bleed. The patient has a gastrointestinal bleed. Gastroenterology is consulted and should evaluate the patient. 3. Endometrial cancer, remote history. No evidence of disease previously. Aware. I would like to thank you for consulting us on Ms. Godfrey. Will continue to follow along and adjust our treatment plan per her hospital course. Dictated by RENEE Hernandez for Yee George MD cc: Yee George MD
[2018-11-01] MEDS: CARAFATE LIQUID PO SCH (21:26)
[2018-11-01] MEDS: SODIUM BICARBONATE PO SCH (21:26)
[2018-11-01 22:17] LABS: BASO# 0.02 X1000 (0.0-0.2); BASO% 0.2 % (0.0-0.8); EOS# 0.09 X1000 (0.0-0.7); EOS% 0.8 % (0.0-10.0); HEMATOCRIT 28.8 % (37.0-47.0); HEMOGLOBIN 9.8 g/dL (12.0-16.0); IMM GRAN# 0.04 X1000 (0.0-0.04); IMM GRAN% 0.4 % (0.0-0.5); LYMPH# 0.85 X1000 (1.2-3.4); MCH 30.4 PG (27-31); MCV 89.4 FL (81-99); MONO# 0.71 X1000 (0.11-0.59); MONO% 6.7 % (1.7-9.3); MPV 8.5 FL (7.4-10.4); NEUT# 8.89 X1000 (1.4-6.5); NEUT% 83.9 % (42.2-75.2); PLT 221 X1000 (130-400); RBC 3.22 XMIL (4.2-5.4)
[2018-11-02] MEDS: CARAFATE LIQUID PO SCH ×2 (02:49→09:42)
[2018-11-02] MEDS: HUMALOG SUBQ SCH ×3 (02:49→09:45)
[2018-11-02 04:09] LABS: BASO# 0.02 X1000 (0.0-0.2); BASO% 0.2 % (0.0-0.8); EOS# 0.14 X1000 (0.0-0.7); EOS% 1.1 % (0.0-10.0); HEMATOCRIT 27.3 % (37.0-47.0); HEMOGLOBIN 9.3 g/dL (12.0-16.0); IMM GRAN# 0.08 X1000 (0.0-0.04); IMM GRAN% 0.6 % (0.0-0.5); LYMPH# 0.71 X1000 (1.2-3.4); LYMPH% 5.4 % (20.5-51.1); MCH 30.4 PG (27-31); MCHC 34.1 g/dL (33-37); MCV 89.2 FL (81-99); MONO# 1.08 X1000 (0.11-0.59); MONO% 8.2 % (1.7-9.3); MPV 7.9 FL (7.4-10.4); NEUT# 11.18 X1000 (1.4-6.5); NEUT% 84.5 % (42.2-75.2); PLT 208 X1000 (130-400); RBC 3.06 XMIL (4.2-5.4); RDW 15.8 % (11.5-14.5); WBC 13.21 X1000 (4.8-10.8)
[2018-11-02 04:34] LABS: ALB/GLOB RATIO 1.2; ALBUMIN 2.7 g/dL (3.5-5.0); CALCIUM 8.6 mg/dL (8.8-10.2); CREATININE 2.4 mg/dL (0.5-0.9); POTASSIUM 3.9 mmol/L (3.5-5.1); TOTAL BILIRUBIN 0.73 mg/dL (0.20-1.00)
[2018-11-02] MEDS: ZOFRAN IV PRN (06:01)
[2018-11-02] MEDS: SYNTHROID PO SCH (06:09)
[2018-11-02 08:06] VITALS: BP 170/49
[2018-11-02] MEDS: SODIUM BICARBONATE PO SCH (09:42)
[2018-11-02] MEDS: PROTONIX IV SCH ×2 (09:42→09:57)
[2018-11-02] MEDS: APRESOLINE PO SCH (09:42)
[2018-11-02] MEDS: COZAAR PO SCH (09:42)
[2018-11-02] MEDS: NIACIN PO SCH (09:42)
[2018-11-02] MEDS: NS 1,000 ML IV SCH (09:42)
[2018-11-02] MEDS: LIPITOR PO SCH (09:42)
[2018-11-02] MEDS: COREG PO SCH (09:42)
[2018-11-02] MEDS: IMDUR PO SCH (09:42)
[2018-11-02 10:18] LABS: BASO# 0.01 X1000 (0.0-0.2); BASO% 0.1 % (0.0-0.8); EOS# 0.11 X1000 (0.0-0.7); EOS% 0.9 % (0.0-10.0); HEMATOCRIT 27.9 % (37.0-47.0); HEMOGLOBIN 9.3 g/dL (12.0-16.0); IMM GRAN# 0.03 X1000 (0.0-0.04); IMM GRAN% 0.2 % (0.0-0.5); LYMPH# 0.64 X1000 (1.2-3.4); LYMPH% 5.3 % (20.5-51.1); MCH 30.2 PG (27-31); MCHC 33.3 g/dL (33-37); MCV 90.6 FL (81-99); MONO% 9.1 % (1.7-9.3); MPV 8.6 FL (7.4-10.4); NEUT# 10.15 X1000 (1.4-6.5); NEUT% 84.4 % (42.2-75.2); PLT 217 X1000 (130-400); RBC 3.08 XMIL (4.2-5.4); RDW 15.9 % (11.5-14.5); WBC 12.04 X1000 (4.8-10.8)
--- NOTE | 2018-11-02 15:21 | GASTROENTEROLOGY PROGRESS NOTE ---
DATE: 11/02/2018 SUBJECTIVE: The patient is resting in bed. The patient denies any new complaints. The patient denies any fevers, rigors, or chills. She denies any nausea or vomiting. OBJECTIVE: Vital signs: Temperature of 98.7 degrees, pulse rate 71, respiratory rate 16, blood pressure 170/49, satting 98% on room air. Body weight of 183 pounds 8 ounces. BMI 27.9 kg/m2. General: The patient is moderately well-nourished, lying in bed in no acute distress. HEENT: Pale conjunctivae. No icterus. Neck: Supple. Abdomen: Soft, nontender, nondistended. No guarding. Extremities: No cyanosis, clubbing. Neurologic: Neuro-arevalo alert, awake, and answers all questions. LABS: Hemoglobin and hematocrit is 9.3 and 27.9, white count of 12.04, platelet count of 217. Sodium 139, potassium of 3.9, chloride 100, bicarbonate of 79, anion gap of 14. BUN of 81, creatinine 2.4, glucose of 151, calcium 8.6. Total bilirubin is 0.73, AST 16, ALT 16, alkaline phosphatase 74, total protein is 5 and albumin of 2.7. H and H is stable for the last 3 readings. IMPRESSION AND PLAN: 1. Bleeding Dieulafoy lesion in the second portion of the duodenum, which was treated with epinephrine injection and cautery. The patient will continue on clear liquid diet for the next three days and advance as tolerated. 2. The patient will avoid any nonsteroidal anti-inflammatory drugs. 3. The patient was counseled to quit smoking completely. 4. Melena has now resolved. 5. Anemia. Continue to watch for now. Transfuse as needed. 6. We will keep the patient on Carafate 1 g 6 hours for 6 weeks. We will keep her on Protonix twice daily for 3 months. 7. The patient has history of chronic constipation. Encouraged the patient to start on MiraLAX once daily on discharge. 8. Diabetes. She is on sliding scale Humalog. 9. Chronic smoker. Aware. Patient counseled to quit smoking. 10. Chronic kidney disease stage IV. Aware. 11. History of endometrial cancer status post adjuvant therapy treatment given 7 years ago. 12. Chronic right lymphedema noted. 13. History of coronary disease status post coronary artery bypass graft, aware. Above plan was discussed with the patient and all questions answered. Please call us with any further questions. cc: MD Damián Kruse MD Raphael K. Quansah, MD MTDD
--- NOTE | 2018-11-03 00:37 | DISCHARGE SUMMARY ---
ADMISSION DATE: 10/31/2018 DISCHARGE DATE: 11/02/2018 DISPOSITION: Home. FOLLOW-UP: 1. Dr. Ashley Quiroz. 2. Dr. Ramirez. 3. Dr. Colby. CONSULTATION DURING THIS ADMISSION: 1. Gastrointestinal was consulted, patient was seen by Dr. Ramirez, followed up by Dr. Munoz. 2. Hematology/Oncology was consulted, patient was seen by Dr. George. 3. Nephrology was consulted, patient was seen by Dr. Colby. INVASIVE PROCEDURES DURING THIS ADMISSION: EGD was done by Dr. Ramirez, report shows bleeding at Dieulafoy lesion in the 2nd portion of the duodenum, status post epinephrine, cautery, and tattoo. There was also melenic stool in the sigmoid. Colonoscopy was incomplete. ADMISSION DIAGNOSES: 1. Symptomatic anemia of chronic disease. 2. Chronic kidney disease stage 4. 3. Hypertension. 4. Dyslipidemia. DIAGNOSIS AT THE TIME OF DISCHARGE: 1. Symptomatic anemia. Patient is status post 4 packed red blood cells transfusions. Hemoglobin and hematocrit is stabilized at 9.3. The patient denies any ongoing acute bleed. 2. Anemia secondary to gastrointestinal bleed. The patient is status post esophagogastroduodenoscopy. Findings confirmed a Dieulafoy lesion in the 2nd part of the duodenum which was bleeding. This was cauterized and epinephrine was applied. The patient is currently asymptomatic. 3. Chronic kidney disease stage 4. The patient was seen by Nephrology and she will follow up with them on an outpatient basis. 4. History of endometrial cancer status post adjuvant therapy. This is about 6 years ago and is stable. 5. Chronic right lymphedema noted. 6. History of coronary artery disease status post coronary artery bypass graft in the past. Currently patient is asymptomatic. 7. Metabolic acidosis secondary to renal failure. Patient has been started on bicarb therapy. PRESENTING COMPLAINT: Weakness. HISTORY OF PRESENTING COMPLAINT: Ms Godfrey is a 73-year-old female who presented to the emergency department because of weakness and episode of feeling dizzy. Upon presentation, patient was evaluated was found to have a hemoglobin level of 4.8, was subsequently admitted for further medical care. HOSPITAL COURSE: Ms Godfrey was admitted to the medical floor, was group and crossmatched, was transfused a total of 4 PRBCs. She went for EGD and colonoscopy. EGD revealed Dieulafoy lesions in the 2nd part of the duodenum. This was intervened upon with epinephrine and cauterization. Subsequently, Ms Godfrey continues to be remarkably stable. No more dizziness and no more ongoing bleeding. Her H and H were stabilized around 9.3. This was repeated 2 times today, it has not changed and she denies any symptoms. Ms. Godfrey is, therefore, going to be discharged in stable condition. I have discussed this with Dr. Munoz and he is okay with that. He, however, recommends that Ms Godfrey continues to be on clear liquid diet for the next 24 to 48 hours to prevent any bleeding. This has been explained to Ms. Godfrey and she voiced understanding. Ms. Godfrey' home medications have all been reconciled. DISCHARGE MEDICATIONS INCLUDE: 1. Atorvastatin 40 mg b.i.d. 2. Carvedilol 25 mg b.i.d. 3. Vitamin D. 4. Lasix 40 mg daily. 5. Hydralazine 50 mg 3 times per day. 6. Isordil 60 mg daily. 7. Levothyroxine 200 mg daily. 8. Losartan 100 mg daily. 9. Insulin glargine 35 units subcutaneous daily. 10. Carafate. 11. Sodium bicarb 650 b.i.d. 12. Aspirin has been withheld for about a week. All the discharge instructions have been discussed with Ms. Godfrey and she voiced understanding. Time spent for discharge is 36 minutes. cc: MD Ashley Grewal MD Reginald D. Gladish, MD
[2018-11-03] MEDS ORDERED: PROTONIX IV SCH (12:10)
== END 2018-11-02 11:19 | disposition home or self-care (01) | DRG 378 ==
LOC: ED 22:03 → SUATTDRO 10-31 06:14 → EDIPHOLD 10-31 06:14 → 3N 10-31 14:14 → EDIPHOLD 10-31 14:24 → 3N 11-01 12:55
PROVIDERS: ATTEND Internal Medicine
PROC: EN.HEAT (2018-11-01 09:40)
CPT/HCPCS: 36430; 71010; 71045; 74176; 80048; 80053; 81001; 82570; 82607; 82728; 82746; 82948; 83540; 83550; 83880; 83970; 84156; 84443; 84484; 85014; 85018; 85025; 85045; 86850; 86900; 86901; 86920; 93005; 96365; 96375; 96376; 99285; 99291; A9270; C9113; J0171; J1815; J2405; J7030; J7040; P9016; S0164; XXXXX